=== PATIENT | female | born 1945 | race Caucasian/White ===

== ENCOUNTER 2019-07-18 07:59 | Outpatient (CLI) | payer MEDICARE, SELFPAY ==
--- NOTE | 2019-07-18 08:07 | MR_ITS ---
WS: [id number] MRI HEAD WITH CONTRAST TECHNIQUE: Sagittal T1, T2 axial, T2 axial FLAIR, axial susceptibility weighted imaging, axial diffus ion weighted images, and coronal T2 images were obtained. Pre and post-T1 axial and post T1 coronal i mages. ADC and FSPGR images. CLINICAL INFORMATION: DEMENTIA COMPARISON: None. FINDINGS: No evidence of restricted diffusion to suggest acute ischemia. Ventricular system and basal cisterns are patent. Mild small vessel changes. Moderate parenchymal volume loss. Volume loss worse in the par ietal lobes. Normal posterior fossa. Normal vascular flow voids at the skull base. Paranasal sinuses and mastoid air cells are well aerated. No hemosiderin on the susceptibility weighted images. No abnormal gadolinium enhancement. Normal optic chiasm and pituitary infundibulum. Normal dural veno us sinuses. Moderate symmetric atrophy involving the temporal lobes and hippocampal formations. MR/MR head wo/w con [id number] IMPRESSION: 1. No evidence of restricted diffusion to suggest acute ischemia. 2. Mild small vessel changes with moderate parenchymal volume loss worse in th e parietal lobes. 3. No hemosiderin on susceptibly weighted images. 4. No abnormal gadolinium enhancement. 5. Moderate symmetric atrophy involving the temporal lobes and hippocampal for mations.
== END 2019-07-18 08:00 | disposition home or self-care (01) ==
LOC: RADWPI 08:05
PROVIDERS: PCP Physician Assistant; Visit Provider Physician Assistant
DX: F03.90 Unspecified dementia, unspecified severity, without behavioral disturbance, psychotic disturbance, mood disturbance, and anxiety (principal)
CPT/HCPCS: 70553; A9579

== ENCOUNTER 2019-07-31 15:30 | Outpatient (RCR) | payer MEDICARE, SELFPAY | END 2019-08-02 23:59 | disposition home or self-care (01) | LOC: SOT 15:30 | PROVIDERS: PCP Physician Assistant; Referring Provider Psychiatry & Neurology Neurology; Visit Provider Psychiatry & Neurology Neurology | DX: R41.3 Other amnesia (principal); G31.84 Mild cognitive impairment of uncertain or unknown etiology; R90.89 Other abnormal findings on diagnostic imaging of central nervous system | CPT/HCPCS: 97165 ==

== ENCOUNTER 2019-08-03 06:00 | Outpatient (RCR) | payer MEDICARE, SELFPAY | END 2019-09-02 23:59 | disposition home or self-care (01) | LOC: SOT 06:00 | PROVIDERS: PCP Physician Assistant; Referring Provider Psychiatry & Neurology Neurology; Visit Provider Psychiatry & Neurology Neurology | DX: R41.3 Other amnesia (principal); R90.89 Other abnormal findings on diagnostic imaging of central nervous system; G31.84 Mild cognitive impairment of uncertain or unknown etiology | CPT/HCPCS: 97112; 97530 ==

== ENCOUNTER 2020-06-24 09:59 | Outpatient (CLI) | payer MEDICARE, SELFPAY ==
--- NOTE | 2020-06-24 10:02 | MM_ITS ---
WS: [id number] Exam: [place] [id number] Date/Time of Exam: 06/24/2020 10:09 AM Reason For Exam: SCREENING VIEWS: MLO and CC views both breasts. Comparison made with prior exam of 12/17/2015, 04/07/2012 and 03/17/2010 . Findings: There was no sign of mass, architectural distortion or suspicious calcification in either breast. Fa tty MM/[place] [id number] Impression: BI-RADS: 2-Benign FOLLOW-UP: 1 Year Follow-up This mammogram was also analyzed by the Computer Aided Detection System R2 Imag e Commercial Service Technician.
== END 2020-06-24 10:00 | disposition home or self-care (01) ==
LOC: RADSHAW 10:00
PROVIDERS: PCP Physician Assistant; Visit Provider Physician Assistant
DX: Z12.31 Encounter for screening mammogram for malignant neoplasm of breast (principal)
CPT/HCPCS: 77067

== ENCOUNTER → 2021-09-16 15:43 | Outpatient (BNVA) | payer MEDICARE, SELFPAY | PROVIDERS: Visit Provider Family Medicine | DX: Z76.89 Persons encountering health services in other specified circumstances (principal); J30.9 Allergic rhinitis, unspecified; R41.3 Other amnesia; I10 Essential (primary) hypertension; K30 Functional dyspepsia; E78.2 Mixed hyperlipidemia; F41.1 Generalized anxiety disorder | CPT/HCPCS: 80053; 80061; 84439; 84443; 85025 ==

== ENCOUNTER → 2022-04-07 09:07 | Outpatient (BNVA) | payer MEDICARE, SELFPAY | PROVIDERS: PCP Family Medicine; Visit Provider Family Medicine | DX: E78.2 Mixed hyperlipidemia (principal); I10 Essential (primary) hypertension; F41.1 Generalized anxiety disorder; R41.3 Other amnesia | CPT/HCPCS: 80053; 80061; 84443; 85025 ==

== ENCOUNTER → 2023-01-10 11:43 | Outpatient (BNVA) | payer MEDICARE, SELFPAY | PROVIDERS: PCP Family Medicine; Visit Provider Family Medicine | DX: K21.9 Gastro-esophageal reflux disease without esophagitis (principal); F41.1 Generalized anxiety disorder; I10 Essential (primary) hypertension; R79.89 Other specified abnormal findings of blood chemistry; R41.3 Other amnesia | CPT/HCPCS: 80048; 84439; 84443 ==

== ENCOUNTER → 2023-04-12 13:31 | Outpatient (BNVA) | payer MEDICARE, SELFPAY | PROVIDERS: PCP Family Medicine; Referring Provider Family Medicine; Visit Provider Physician Assistant | DX: M25.562 Pain in left knee (principal); M17.12 Unilateral primary osteoarthritis, left knee | CPT/HCPCS: 20610; 73560; 73565; 99203; J3301 ==

== ENCOUNTER → 2023-07-07 11:07 | Outpatient (BNVA) | payer MEDICARE, SELFPAY | PROVIDERS: PCP Family Medicine; Visit Provider Physician Assistant | DX: M17.12 Unilateral primary osteoarthritis, left knee | CPT/HCPCS: 99213 ==

== ENCOUNTER → 2023-08-16 15:21 | Outpatient (BNVA) | payer MEDICARE, SELFPAY | PROVIDERS: PCP Family Medicine; Visit Provider Physician Assistant | DX: M17.12 Unilateral primary osteoarthritis, left knee (principal); M25.562 Pain in left knee | CPT/HCPCS: 20610; 99213; J7318 ==

== ENCOUNTER → 2023-08-23 12:54 | Outpatient (BNVA) | payer MEDICARE, SELFPAY | PROVIDERS: PCP Family Medicine; Visit Provider Nurse Practitioner Family | DX: D22.22 Melanocytic nevi of left ear and external auricular canal (principal); D22.9 Melanocytic nevi, unspecified; L81.4 Other melanin hyperpigmentation; L82.1 Other seborrheic keratosis; L81.7 Pigmented purpuric dermatosis | CPT/HCPCS: 11200; 99203 ==

== ENCOUNTER → 2024-03-19 14:45 | Outpatient (BNVA) | payer MEDICARE, SELFPAY | PROVIDERS: PCP Family Medicine; Visit Provider Family Medicine | DX: I10 Essential (primary) hypertension (principal); K21.9 Gastro-esophageal reflux disease without esophagitis; E78.2 Mixed hyperlipidemia; R41.3 Other amnesia; E83.42 Hypomagnesemia; E55.9 Vitamin D deficiency, unspecified; R79.89 Other specified abnormal findings of blood chemistry | CPT/HCPCS: 80053; 80061; 82306; 82607; 83735; 84439; 84443; 84550; 85025; 86140 ==

== ENCOUNTER 2024-03-29 21:54 | Emergency (ER) | payer MEDICARE, SELFPAY ==
[2024-03-29 21:58] VITALS: BP 177/78; PULSE 82; RESP 20; TEMP 36.6; O2SAT 95; BMI 34.1
[2024-03-29 22:03] VITALS: BP 177/78; PULSE 82; O2SAT 95
--- NOTE | 2024-03-29 22:09 | XRR_ITS ---
PROCEDURE INFORMATION: Exam: XR Left Elbow Exam date and time: 03/29/2024 10:19 PM Age: 79 years old Clinical indication: Injury or trauma; Fall; Blunt trauma (contusions or hematomas); Elbow; Left; Additional info: Fall/elbow pain TECHNIQUE: Imaging protocol: Radiologic exam of the left elbow. Views: 3 or more views. COMPARISON: CR (UP EXM, ) 03/29/2024 10:19 PM FINDINGS: Bones/joints: Comminuted displaced fracture involving the olecranon process. No dislocation. Joint effusion. Soft tissues: Soft tissue swelling. XR/XR elbow LT min 3V* [id number] IMPRESSION: Acute fracture as above.
--- NOTE | 2024-03-29 22:09 | CTR_ITS ---
PROCEDURE INFORMATION: Exam: CT Cervical Spine Without Contrast Exam date and time: 03/29/2024 10:39 PM Age: 79 years old Clinical indication: Injury or trauma; Fall; Blunt trauma; Additional info: Fall/hit head TECHNIQUE: Imaging protocol: Computed tomography of the cervical spine without contrast. Radiation optimization: All CT scans at this facility use at least one of these dose optimization techniques: automated exposure control; mA and/or kV adjustment per patient size (includes targeted exams where dose is matched to clinical indication); or iterative reconstruction. COMPARISON: CT head wo con* [id number] 03/29/2024 10:35 PM RADIATION DOSE METRICS: Total DLP (mGy-cm): 203.31 FINDINGS: Bones: No acute fracture. No traumatic listhesis. Presumed chronic mild multilevel anterolisthesis, including at C3 on C4, C5 on C6 and C7 on T1. Multilevel degenerative changes. No severe spinal canal narrowing. Lungs: Lung apices are normal. Soft tissues: Unremarkable. CT/CT cervical spin wo con* [id number] IMPRESSION: No acute cervical spine findings.
--- NOTE | 2024-03-29 22:09 | CTR_ITS ---
PROCEDURE INFORMATION: Exam: CT Head Without Contrast Exam date and time: 03/29/2024 10:35 PM Age: 79 years old Clinical indication: Injury or trauma; Fall; Blunt trauma (contusions or hematomas); Consciousness not specified; Additional info: Fall/hit head/face TECHNIQUE: Imaging protocol: Computed tomography of the head without contrast. Radiation optimization: All CT scans at this facility use at least one of these dose optimization techniques: automated exposure control; mA and/or kV adjustment per patient size (includes targeted exams where dose is matched to clinical indication); or iterative reconstruction. COMPARISON: MR head wo/w con [id number] 07/18/2019 8:11 AM RADIATION DOSE METRICS: Total DLP (mGy-cm): 1042.63 FINDINGS: Brain: No acute intracranial hemorrhage, mass effect or midline shift. White matter hypodensities most likely from chronic microangiopathy. Cerebral ventricles: Ex vacuo expansion of the ventricles due to volume loss. Paranasal sinuses: Visualized sinuses are unremarkable. No fluid levels. Mastoid air cells: Visualized mastoid air cells are well aerated. Bones: No acute bony findings. Soft tissues: Left frontal scalp hematoma. CT/CT head wo con* [id number] IMPRESSION: No acute intracranial findings.
--- NOTE | 2024-03-29 22:09 | XRR_ITS ---
PROCEDURE INFORMATION: Exam: XR Left Humerus Exam date and time: 03/29/2024 10:19 PM Age: 79 years old Clinical indication: Injury or trauma; Fall; Blunt trauma (contusions or hematomas); Elbow; Left; Additional info: Fall/pain TECHNIQUE: Imaging protocol: Radiologic exam of the left humerus. Views: 2 or more views. COMPARISON: CR (UP EXM, ) 03/29/2024 10:19 PM FINDINGS: Bones/joints: No acute humerus fracture. No dislocation. Olecranon process fracture, detailed on concurrent elbow radiographic exam. Soft tissues: Elbow soft tissue swelling. XR/[place] [id number] IMPRESSION: No acute humerus fracture.
[2024-03-29 22:20] LABS: Basophils # 0.1 10^3/uL (0.0-0.1); Eosinophils # 0.1 10^3/uL (0.0-0.8); Eosinophils % 2.1 %; Lymphocytes # 2.1 10^3/uL (0.8-4.8); Lymphocytes % 40.4 %; Mean Corpuscular HGB Conc 33.5 g/dL (30-55); Mean Corpuscular Hemoglobin 33.1 pg (27-33); Mean Corpuscular Volume 98.8 fl (85-98); Mean Platelet Volume 12.1 fL (7.4-10.4); Monocytes # 0.5 10^3/uL (0.2-0.9); Monocytes % 9.9 %; Neutrophils # 2.38 10^3/uL (1.8-7.7); Neutrophils % 46.4 %; Nucleated Red Blood Cells % 0 %; Platelet Count 127 10^3/cmm (157-399); Red Blood Count 4.05 10^6/uL (3.85-5.65); Red Cell Distribution Width 12.3 % (12.1-15.1); White Blood Count 5.13 10^3/uL (3.29-11.43)
--- NOTE | 2024-03-29 22:34 | ED_ITS ---
Documented by User: FLORIN Ortez 03/30/24 16:05 HPI - Fall 2 General: Chief Complaint: Fall Stated Complaint: Fall Time Seen by Provider: 03/29/24 22:02 Source: patient Mode of arrival: EMS Limitations: no limitations History of Present Illness: Patient is an 79-year-old female who presents the emergency department after a fall that occurred prior to arrival. Patient states she missed a step while walking on stairs, fell sideways onto her left side. Reporting severe pain to her left elbow, and has large injuries to her face including skin tear to left cheek and abrasions to forehead. She is not reporting any lower extremity pain, specifically no hip pain. She states she was on the ground until EMS got there which was about 20 minutes, they had to help her up. States her pain is in control at this time, primarily is to her left elbow. She is not on a blood thinner. Denies hitting the back of her head or losing consciousness. No vomiting or focal neurological deficits. No other symptoms reported at this time. She has no previous fracture or dislocation history of her left elbow. MD complaint: fall Onset (ago): minute(s) Related Data Previous Rx's Medication Instructions Recorded pantoprazole 40 mg tablet,delayed 40 mg PO DAILY #90 tabs 03/19/24 release hydrocodone 5 mg-acetaminophen 325 1 tab PO Q8H PRN pain #14 tabs 03/30/24 mg tablet Allergies Allergy/AdvReac Type Severity Reaction Status Date / Time No Known Allergies Allergy Verified 03/30/24 13:49 [facility] ED 2 PFSH: Medical History Hypertension Family History Other Cancer Hypertension Denies family history of Diabetes CAD (coronary artery disease) Social History Smoking and tobacco/nicotine status: never used tobacco/nicotine Alcohol intake: current Alcohol intake frequency: holidays/special occasions only Substance/Drug Use: never Physical Exam 2 Const: COMMON NORMALS: no acute distress, patient oriented x3, healthy appearing and alert GENERAL APPEARANCE: cooperative O RIENTATION/CONSCIOUSNESS: Yes awake HENMT: OTHER: Large superficial skin tear to patient's left cheek with no active bleeding or signs of contamination. 2 superficial abrasions to her left forehead. None of these wounds are actively bleeding. No Roberto sign or raccoon eyes. No palpable skull fracture. No other signs of head or neck trauma. Eye: COMMON NORMALS: Equal, round and reactive pupils present, EOMs intact bilaterally and conjunctivae normal CONJUNCTIVA: Yes conjunctivae normal P UPIL: Yes Equal, round and reactive pupils present Neck/C-Spine: COMMON NORMALS: full ROM, supple and no meningeal signs Chest: COMMONS NORMALS: normal inspection of the chest and normal palpation of entire chest wall Resp: COMMON NORMALS: normal respiratory effort, No retractions, No use of accessory muscles and clear to auscultation bilaterally AUSCULTATION: clear to auscultation bilaterally Cardio: COMMON NORMALS: regular rate, regular rhythm, S1 normal heart sound present, S2 normal heart sound present, No gallops present (Cardio), No murmurs present (Cardio) and No rub (Cardio) RATE: regular rate RHYTHM: regular rhythm HEART SOUNDS: S1 normal heart sound present and S2 normal heart sound present GI: COMMON NORMALS: Soft to palpation and non-tender PALPATION: Yes Soft to palpation Back/Pelvis: COMMON NORMALS: no thoracic nor lumbar tenderness and thoraco- lumbar ROM normal Extremity: NARRATIVE EXTREMITY EXAM: Swelling to left elbow, significant reproducible tenderness to palpation. She cannot extend the left arm at the elbow. No skin tenting or open wounds. Distal radial pulse intact. Distal sensations intact. Both hips are palpated and negative tenderness to palpation. Negative logroll's. No shortening or internal/external rotation. Good flexion and extension at the hips. Distal sensations intact to her bilateral lower extremities. All other joints palpated and nontender. Neuro: COMMON NORMALS: patient oriented x3, CN's II-XII intact bilaterally, moves all extremities, no focal motor deficits and no sensory deficits noted SENSORIUM/ORIENTATION: Yes alert MENINGEAL SIGNS: Yes no meningeal signs M OTOR EXAM: Pronator motor function not present, no tremor noted and no asterixis Course 2 Vital Signs: Vital signs: Vital Signs Temperature 98 F 03/29/24 21:58 Pulse Rate 87 03/30/24 05:04 Respiratory Rate 20 H 03/29/24 23:11 Blood Pressure 169/80 03/30/24 00:00 Pulse Oximetry 93 03/30/24 05:04 Oxygen Delivery Me thod Room Air 03/30/24 04:00 MDM - Fall Medical Decision Making I initially saw the patient for a fall, she fell onto her left side did not hit head or lose consciousness. Large amount of swelling to left elbow, no skin tenting or open wounds. There was displaced fracture to left proximal ulna. XRs were reviewed with Dr. Jc who recommended splint and prompt follow up. Patient's pre and post splint neurovascular status intact. She had scattered abrasions that were tended to, none requiring any procedural repair as they were all too superficial. Patient did not complain to me of any lower extremity pain on initial exam and I did not appreciate any acute findings, however family reported that after fall she initially reported diffuse left lower extremity pain, XR of left hip neg but XR of knee saw potential tibial plateau fx and recommended CT. CT is pending upon handoff to Dr. Desouza. Patient's care transferred over myself at shift change, FERTILIZER APPLICATOR was in discussion with Dr. Jc about patient's condition. Only thing pending we will get the care transferred over to myself was in the CT. Did not show any acute fracture. Patient is in a splint for her left arm currently. She has a prescription for [place] for pain medicine. We will discharge her and have her call Ortho's office first thing in the morning to arrange follow-up. Lab Data 03/29/24 22:14 03/29/24 22:14 Radiology Impressions Cervical Spine CT 03/29/24 22:09 IMPRESSION: No acute cervical spine findings. Elbow X-Ray 03/29/24 22:09 IMPRESSION: Acute fracture as above. Head CT 03/29/24 22:09 IMPRESSION: No acute intracranial findings. Humerus X-Ray 03/29/24 22:09 IMPRESSION: No acute humerus fracture. Hip/Pelvis X-Ray 03/29/24 22:38 IMPRESSION: No acute bony findings. Knee X-Ray 03/29/24 22:38 IMPRESSION: Suspect acute impacted fracture at the lateral tibial plateau with a mildly depressed component. Recommend confirmation with CT. Knee CT 03/30/24 00:56 IMPRESSION: 1. Focal osteopenia of the anterolateral tibial plateau with multiple regions of cortical irregularity, however no definitive fracture lucency transgressing. This may represent bone contusion, however in the setting of osteopenia fractures can remain occult. MRI can be obtained for further assessment. 2. Moderate articular effusion with multiple intra-articular bodies. 3. Moderate osteoarthritis. Laboratory Results WBC 5.13 10^3/uL (3.29-11.43) 03/29/24 22:14 RBC 4.05 10^6/uL (3.85-5.65) 03/29/24 22:14 Hgb 13.40 g/dL (11.27-16.99) 03/29/24 22:14 Hct 40.0 % (36-47) 03/29/24 22:14 MCV 98.8 fl (85-98) H 03/29/24 22:14 MCH 33.1 pg (27-33) H 03/29/24 22:14 MCHC 33.5 g/dL (30-55) 03/29/24 22:14 RDW 12.3 % (12.1-15.1) 03/29/24 22:14 Plt Count 127 10^3/cmm (157-399) L 03/29/24 22:14 MPV 12.1 fL (7.4-10.4) H 03/29/24 22:14 Neut % (Auto) 46.4 % 03/29/24 22:14 Lymph % (Auto) 40.4 % 03/29/24 22:14 [place] % (Auto) 9.9 % 03/29/24 22:14 Eos % (Auto) 2.1 % 03/29/24 22:14 Baso % (Auto) 1.0 % 03/29/24 22:14 Neut # (Auto) 2.38 10^3/uL (1.8-7.7) 03/29/24 22:14 Lymph # (Auto) 2.1 10^3/uL (0.8-4.8) 03/29/24 22:14 [place] # (Auto) 0.5 10^3/uL (0.2-0.9) 03/29/24 22:14 Eos # (Auto) 0.1 10^3/uL (0.0-0.8) 03/29/24 22:14 Baso # (Auto) 0.1 10^3/uL (0.0-0.1) 03/29/24 22:14 Nucleated RBC % (auto) 0 % 03/29/24 22:14 Nucleated RBCs # 0.0 /100WBC 03/29/24 22:14 Sodium 139 mmol/L (136-145) 03/29/24 22:14 Potassium 4.0 mmol/L (3.5-5.1) 03/29/24 22:14 Chloride 103 mmol/L (98-107) 03/29/24 22:14 Carbon Dioxide 26 mmol/L (22-29) 03/29/24 22:14 Anion Gap 14.0 (5-19) 03/29/24 22:14 BUN 15 mg/dL (8-23) 03/29/24 22:14 Creatinine 0.8 mg/dL (0.5-0.9) 03/29/24 22:14 GFR Calculation Not Reportable 03/29/24 22:14 Glucose 149 mg/dL (65-115) H 03/29/24 22:14 Calculated Osmolality 292 mOsm/kg (285-295) 03/29/24 22:14 Calcium 9.0 mg/dL (8.5-10.5) 03/29/24 22:14 Total Bilirubin 0.2 mg/dL (0.15-1.2) 03/29/24 22:14 AST 26 U/L (0-32) 03/29/24 22:14 ALT 21 U/L (0-33) 03/29/24 22:14 Alkaline Phosphatase 82 U/L (35-105) 03/29/24 22:14 Total Protein 6.5 g/dL (6.6-8.7) L 03/29/24 22:14 Albumin 4.1 g/dL (3.5-5.2) 03/29/24 22:14 Globulin 2.4 g/dL (1.3-4.6) 03/29/24 22:14 All radiology interpretation(s) finalized by discharge Discharge Plan Discharge Patient Disposition: Home Clinical Impression: Fracture of proximal end of left ulna Qualifiers: Encounter type: initial encounter Fracture type: closed Fracture morphology: u nspecified fracture morphology Qualified Code(s): S52.002A - Unspecified fracture of upper end of left ulna, initial encounter for closed fracture Condition: Stable Prescriptions: New hydrocodone-acetaminophen 5-325 mg tablet 1 tab PO Q8H PRN (Reason: pain) Qty: 14 0RF No Action pantoprazole 40 mg tablet,delayed release (DR/EC) 40 mg PO DAILY Qty: 90 2RF Discharge Orders: Discharge ED (Routine); Ordered 03/30/24 Ordered By: Marvin Desouza Referrals: Jacobo Mancilla DO [Primary Care Provider] - 1 week Patient Instructions: Elbow Fracture (ED) Activity Restrictions/Additional Instructions: Close follow-up with orthopedics as we discussed. Take pain medications as prescribed. You may alternate this with ibuprofen. Wound care as discussed, replacing dry nonadhesive bandages every 6-8 hours. Make sure these are healing appropriately, follow-up closely with primary care as well. Please return with any new or worsening. Coding Level of Care Code ED Front End Architect for Chg Fwd Documented by User: Marvin Desouza DO 03/30/24 04:52 HPI - Fall 2 General: Chief Complaint: Fall Stated Complaint: Fall Time Seen by Provider: 03/29/24 22:02 Related Data Previous Rx's Medication Instructions Recorded pantoprazole 40 mg tablet,delayed 40 mg PO DAILY #90 tabs 03/19/24 release hydrocodone 5 mg-acetaminophen 325 1 tab PO Q8H PRN pain #14 tabs 03/30/24 mg tablet Allergies Allergy/AdvReac Type Severity Reaction Status Date / Time No Known Allergies Allergy Verified 03/30/24 13:49 PFSH ED 2 PFSH: Medical History Hypertension Family History Other Cancer Hypertension Denies family history of Diabetes CAD (coronary artery disease) Social History Smoking and tobacco/nicotine status: never used tobacco/nicotine Alcohol intake: current Alcohol intake frequency: holidays/special occasions only Substance/Drug Use: never Course 2 Vital Signs: Vital signs: Vital Signs Temperature 98 F 03/29/24 21:58 Pulse Rate 87 03/30/24 05:04 Respiratory Rate 20 H 03/29/24 23:11 Blood Pressure 169/80 03/30/24 00:00 Pulse Oximetry 93 03/30/24 05:04 Oxygen Delivery Me thod Room Air 03/30/24 04:00 MDM - Fall Medical Decision Making Patient's care transferred over myself at shift change, FERTILIZER APPLICATOR was in discussion with Dr. Jc about patient's condition. Only thing pending we will get the care transferred over to myself was in the CT. Did not show any acute fracture. Patient is in a splint for her left arm currently. She has a prescription for [place] for pain medicine. We will discharge her and have her call Ortho's office first thing in the morning to arrange follow-up. Lab Data 03/29/24 22:14 03/29/24 22:14 Radiology Impressions Cervical Spine CT 03/29/24 22:09 IMPRESSION: No acute cervical spine findings. Elbow X-Ray 03/29/24 22:09 IMPRESSION: Acute fracture as above. Head CT 03/29/24 22:09 IMPRESSION: No acute intracranial findings. Humerus X-Ray 03/29/24 22:09 IMPRESSION: No acute humerus fracture. Hip/Pelvis X-Ray 03/29/24 22:38 IMPRESSION: No acute bony findings. Knee X-Ray 03/29/24 22:38 IMPRESSION: Suspect acute impacted fracture at the lateral tibial plateau with a mildly depressed component. Recommend confirmation with CT. Knee CT 03/30/24 00:56 IMPRESSION: 1. Focal osteopenia of the anterolateral tibial plateau with multiple regions of cortical irregularity, however no definitive fracture lucency transgressing. This may represent bone contusion, however in the setting of osteopenia fractures can remain occult. MRI can be obtained for further assessment. 2. Moderate articular effusion with multiple intra-articular bodies. 3. Moderate osteoarthritis. Laboratory Results WBC 5.13 10^3/uL (3.29-11.43) 03/29/24 22:14 RBC 4.05 10^6/uL (3.85-5.65) 03/29/24 22:14 Hgb 13.40 g/dL (11.27-16.99) 03/29/24 22:14 Hct 40.0 % (36-47) 03/29/24 22:14 MCV 98.8 fl (85-98) H 03/29/24 22:14 MCH 33.1 pg (27-33) H 03/29/24 22:14 MCHC 33.5 g/dL (30-55) 03/29/24 22:14 RDW 12.3 % (12.1-15.1) 03/29/24 22:14 Plt Count 127 10^3/cmm (157-399) L 03/29/24 22:14 MPV 12.1 fL (7.4-10.4) H 03/29/24 22:14 Neut % (Auto) 46.4 % 03/29/24 22:14 Lymph % (Auto) 40.4 % 03/29/24 22:14 [place] % (Auto) 9.9 % 03/29/24 22:14 Eos % (Auto) 2.1 % 03/29/24 22:14 Baso % (Auto) 1.0 % 03/29/24 22:14 Neut # (Auto) 2.38 10^3/uL (1.8-7.7) 03/29/24 22:14 Lymph # (Auto) 2.1 10^3/uL (0.8-4.8) 03/29/24 22:14 [place] # (Auto) 0.5 10^3/uL (0.2-0.9) 03/29/24 22:14 Eos # (Auto) 0.1 10^3/uL (0.0-0.8) 03/29/24 22:14 Baso # (Auto) 0.1 10^3/uL (0.0-0.1) 03/29/24 22:14 Nucleated RBC % (auto) 0 % 03/29/24 22:14 Nucleated RBCs # 0.0 /100WBC 03/29/24 22:14 Sodium 139 mmol/L (136-145) 03/29/24 22:14 Potassium 4.0 mmol/L (3.5-5.1) 03/29/24 22:14 Chloride 103 mmol/L (98-107) 03/29/24 22:14 Carbon Dioxide 26 mmol/L (22-29) 03/29/24 22:14 Anion Gap 14.0 (5-19) 03/29/24 22:14 BUN 15 mg/dL (8-23) 03/29/24 22:14 Creatinine 0.8 mg/dL (0.5-0.9) 03/29/24 22:14 GFR Calculation Not Reportable 03/29/24 22:14 Glucose 149 mg/dL (65-115) H 03/29/24 22:14 Calculated Osmolality 292 mOsm/kg (285-295) 03/29/24 22:14 Calcium 9.0 mg/dL (8.5-10.5) 03/29/24 22:14 Total Bilirubin 0.2 mg/dL (0.15-1.2) 03/29/24 22:14 AST 26 U/L (0-32) 03/29/24 22:14 ALT 21 U/L (0-33) 03/29/24 22:14 Alkaline Phosphatase 82 U/L (35-105) 03/29/24 22:14 Total Protein 6.5 g/dL (6.6-8.7) L 03/29/24 22:14 Albumin 4.1 g/dL (3.5-5.2) 03/29/24 22:14 Globulin 2.4 g/dL (1.3-4.6) 03/29/24 22:14 Discharge Plan Discharge Patient Disposition: Home Clinical Impression: Fracture of proximal end of left ulna Qualifiers: Encounter type: initial encounter Fracture type: closed Fracture morphology: u nspecified fracture morphology Qualified Code(s): S52.002A - Unspecified fracture of upper end of left ulna, initial encounter for closed fracture Condition: Stable Prescriptions: New hydrocodone-acetaminophen 5-325 mg tablet 1 tab PO Q8H PRN (Reason: pain) Qty: 14 0RF No Action pantoprazole 40 mg tablet,delayed release (DR/EC) 40 mg PO DAILY Qty: 90 2RF Discharge Orders: Discharge ED (Routine); Ordered 03/30/24 Ordered By: Marvin Desouza Referrals: Jacobo Mancilla DO [Primary Care Provider] - 1 week Patient Instructions: Elbow Fracture (ED) Activity Restrictions/Additional Instructions: Close follow-up with orthopedics as we discussed. Take pain medications as prescribed. You may alternate this with ibuprofen. Wound care as discussed, replacing dry nonadhesive bandages every 6-8 hours. Make sure these are healing appropriately, follow-up closely with primary care as well. Please return with any new or worsening. Coding Level of Care Code ED Front End Architect for Darrius Felder
--- NOTE | 2024-03-29 22:38 | XRR_ITS ---
PROCEDURE INFORMATION: Exam: XR Left Hip Exam date and time: 03/29/2024 10:43 PM Age: 79 years old Clinical indication: Injury or trauma; Fall; Blunt trauma (contusions or hematomas); Left; Hip and pelvic region; Additional info: Fall/pain TECHNIQUE: Imaging protocol: Radiologic exam of the left hip. Views: 2 or 3 views hip with pelvis when performed. COMPARISON: No relevant prior studies available. FINDINGS: Bones/joints: No acute fracture or dislocation. Moderate left hip DJD. Soft tissues: Unremarkable. XR/XR hip LT 2-3V wo/w pel* [id number] IMPRESSION: No acute bony findings.
--- NOTE | 2024-03-29 22:38 | XRR_ITS ---
PROCEDURE INFORMATION: Exam: XR Left Knee Exam date and time: 03/29/2024 10:43 PM Age: 79 years old Clinical indication: Injury or trauma; Fall; Blunt trauma; Knee; Left; Additional info: Fall/pain TECHNIQUE: Imaging protocol: Radiologic exam of the left knee. Views: 3 views. COMPARISON: CR XR knees AP WB w BI lmt ORTH 04/12/2023 1:43 PM FINDINGS: Bones/joints: Irregularity at the lateral tibial plateau. No dislocation. Joint effusion. Soft tissues: Soft tissue swelling. XR/XR knee LT 3V* [id number] IMPRESSION: Suspect acute impacted fracture at the lateral tibial plateau with a mildly depressed component. Recommend confirmation with CT.
[2024-03-29 22:41] LABS: Alanine Aminotransferase 21 U/L (0-33); Albumin Level 4.1 g/dL (3.5-5.2); Alkaline Phosphatase 82 U/L (35-105); Aspartate Amino Transferase 26 U/L (0-32); Blood Urea Nitrogen 15 mg/dL (8-23); Carbon Dioxide 26 mmol/L (22-29); Chloride 103 mmol/L (98-107); Creatinine Clr Calc Pharmacy 67.7461; Globulin 2.4 g/dL (1.3-4.6); Glucose 149 mg/dL (65-115); Osmolality Calculated 292 mOsm/kg (285-295); Sodium 139 mmol/L (136-145); Total Bilirubin 0.2 mg/dL (0.15-1.2); Total Protein 6.5 g/dL (6.6-8.7)
[2024-03-29 23:03] VITALS: BP 168/76; PULSE 87; O2SAT 95
[2024-03-29 23:11] VITALS: RESP 20
[2024-03-29] MEDS: HYDROmorphone 1 mg/mL INJ 1 mL IVP (23:11)
[2024-03-29 23:30] VITALS: BP 153/63; PULSE 86; O2SAT 91
[2024-03-30] VITALS (9 sets, daily range): BP systolic 169; BP diastolic 80; PULSE 73–91; O2SAT 78–94
--- NOTE | 2024-03-30 00:56 | CTR_ITS ---
PROCEDURE INFORMATION: Exam: CT Left Lower Extremity, Knee Exam date and time: 03/30/2024 1:10 AM Age: 79 years old Clinical indication: Injury or trauma; Fall; Blunt trauma; Knee; Left; Additional info: Questionable tibial plateau fracture on XR TECHNIQUE: Imaging protocol: CT of the left lower extremity without contrast was performed. Exam focused on the knee. Radiation optimization: All CT scans at this facility use at least one of these dose optimization techniques: automated exposure control; mA and/or kV adjustment per patient size (includes targeted exams where dose is matched to clinical indication); or iterative reconstruction. COMPARISON: CR (LOW EXM, ) 03/29/2024 10:43 PM RADIATION DOSE METRICS: Total DLP (mGy-cm): 352.04 FINDINGS: Bones/joints: Anterolateral tibial plateau focal osteopenia with several regions of cortical irregularity without definitive fracture lucency on this examination. Moderate-sized effusion. Diffuse osteopenia. Soft tissues: Normal. Vasculature: Peripheral arterial vascular disease. CT/CT knee LT wo con* [id number] IMPRESSION: 1. Focal osteopenia of the anterolateral tibial plateau with multiple regions of cortical irregularity, however no definitive fracture lucency transgressing. This may represent bone contusion, however in the setting of osteopenia fractures can remain occult. MRI can be obtained for further assessment. 2. Moderate articular effusion with multiple intra-articular bodies. 3. Moderate osteoarthritis.
[2024-03-30] MEDS: ondansetron 4 MG Tablet PO ×2 (01:53→03:04)
--- NOTE | 2024-03-30 05:13 | DCPLANNER ---
Message sent to ortho for follow up- Fx of left ulna
== END 2024-03-30 05:06 | disposition home or self-care (01) ==
PROVIDERS: Emergency Provider Physician Assistant; PCP Family Medicine
DX: S52.002A Unspecified fracture of upper end of left ulna, initial encounter for closed fracture (principal); I10 Essential (primary) hypertension; W19.XXXA Unspecified fall, initial encounter; S52.032A Displaced fracture of olecranon process with intraarticular extension of left ulna, initial encounter for closed fracture; S52.045A Nondisplaced fracture of coronoid process of left ulna, initial encounter for closed fracture; S42.442A Displaced fracture (avulsion) of medial epicondyle of left humerus, initial encounter for closed fracture
CPT/HCPCS: 29105; 36415; 70450; 72125; 73060; 73080; 73502; 73562; 73700; 80053; 85025; 96374; 99285; J1171; Q0162

== ENCOUNTER → 2024-03-30 13:44 | Outpatient (BNVA) | payer MEDICARE, SELFPAY | PROVIDERS: PCP Family Medicine; Referring Provider Physician Assistant; Visit Provider Student in an Organized Health Care Education/Training Program | DX: S52.002A Unspecified fracture of upper end of left ulna, initial encounter for closed fracture (principal); M17.12 Unilateral primary osteoarthritis, left knee; W18.39XA Other fall on same level, initial encounter | CPT/HCPCS: 73080 ==

== ENCOUNTER 2024-03-30 15:37 | Outpatient (CLI) | payer MEDICARE, SELFPAY ==
--- NOTE | 2024-03-30 15:40 | CTR_ITS ---
PROCEDURE INFORMATION: Exam: CT Left Upper Extremity Without Contrast, Elbow Exam date and time: 03/30/2024 4:08 PM Age: 79 years old Clinical indication: Injury or trauma; Fall; Blunt trauma (contusions or hematomas); Elbow; Left; Injury date: 03/30/2024; Additional info: Fracture, no prior auth required ref# [id number] TECHNIQUE: Imaging protocol: Computed tomography of the left upper extremity without contrast. Exam focused on the elbow. Radiation optimization: All CT scans at this facility use at least one of these dose optimization techniques: automated exposure control; mA and/or kV adjustment per patient size (includes targeted exams where dose is matched to clinical indication); or iterative reconstruction. COMPARISON: CR XR elbow LT min 3V* [id number] 03/30/2024 1:45 PM RADIATION DOSE METRICS: Total DLP (mGy-cm): 101.58 FINDINGS: Bones/joints: Acute widely displaced intra-articular fracture of the proximal ulna with isolation of the olecranon process. Acute avulsion fracture of the coronoid process of the proximal ulna involving the sublime tubercle. There is a subcentimeter displaced avulsion fragment along the medial aspect of the distal humerus, which may reflect avulsion of the proximal attachment of the ulnar collateral ligament (for example, image 63 of series 5 and image 25 of series 12). Small joint effusion/hemarthrosis noted. Radiocapitellar alignment is maintained. Proximal radius is intact. Chronic bony spurring along the lateral humeral epicondyle compatible with chronic avulsive injury versus epicondylitis. Soft tissues: Soft tissue edema without evidence of fluid collection or hematoma. CT/CT elbow LT wo con* [id number] IMPRESSION: 1. Acute displaced proximal ulnar fracture. 2. Acute coronoid process fracture. 3. Subcentimeter avulsion fragment along the medial aspect of the distal humerus, possibly reflecting avulsion of the proximal attachment of the ulnar collateral ligament. Follow-up orthopedic evaluation and nonemergent MRI of the elbow is recommended.
== END 2024-03-30 15:38 | disposition home or self-care (01) ==
LOC: RAD 15:39
PROVIDERS: PCP Family Medicine; Visit Provider Student in an Organized Health Care Education/Training Program
DX: S52.032A Displaced fracture of olecranon process with intraarticular extension of left ulna, initial encounter for closed fracture (principal); S52.045A Nondisplaced fracture of coronoid process of left ulna, initial encounter for closed fracture; S42.442A Displaced fracture (avulsion) of medial epicondyle of left humerus, initial encounter for closed fracture; W19.XXXA Unspecified fall, initial encounter
CPT/HCPCS: 73200

== ENCOUNTER 2024-04-02 11:43 | Day surgery (SDC) | payer MEDICARE, SELFPAY ==
[2024-04-02] VITALS (12 sets, daily range): BP systolic 143–173; BP diastolic 60–91; PULSE 67–82; RESP 12–18; TEMP 36.1–36.7; O2SAT 90–95; BMI 31.9
--- NOTE | 2024-04-02 12:25 | W.PM.OPSUD ---
Surgery/Procedure H&P Update DATE OF PROCEDURE: April 02, 2024 DATE H&P PERFORMED: 03/30/24 H&P UPDATE INFORMATION: I have reviewed H&P completed within last 30 days, I have examined patient prior to procedure and No changes to prior documentation CHANGES TO PREVIOUS DOCUMENTATION: No changes since last office visit. We did get a CT scan again demonstrating the acute proximal ulna fracture consistent with olecranon fracture. There is a small avulsion of the coronoid process as well as appears to be small avulsion of medial epicondyle at this point in time we talked about treatment options at this point time I feel she best be benefited from a ORIF left olecranon I feel this will add to the stability of the elbow and in the process of recovery we will keep her in a hinged elbow brace for any type of sprains of the collateral ligaments. They understand and agree with current plan. All questions answered. PREOP DIAGNOSIS: Left olecranon fracture displaced PRIMARY INDICATION FOR PROCEDURE: Left olecranon fracture displaced PLANNED PROCEDURE: Operation Date: 04/02/24 14:20 Proposed Procedures p OLECRANON OPEN REDUCTION INTERNAL FIXATION(Left) - Marlo Jc DO
[2024-04-02] MEDS: acetaminophen 1,000 MG/100 ML PIGGYBACK 400 MG IV (12:57)
[2024-04-02] MEDS: ketorolac 30 mg/mL INJ IVP (13:07)
[2024-04-02] MEDS: sodium chloride 0.9% 1,000 ML 30 ML IV (13:15)
--- NOTE | 2024-04-02 13:31 | P.ANESASSM_ITS ---
Pre-Anesthetic Assessment Height/Weight: Height 1.7 m Weight 92.533 kg Temp Pulse Resp BP Pulse Ox O2 Del Method 98.0 F 70 16 143/60 94 Room Air 04/02/24 12:20 04/02/24 13:15 04/02/24 13:15 04/02/24 13:15 04/02/24 13:15 04/02/24 13:15 Preop Diagnosis: Left olecranon fracture displaced Operation Date: 04/02/24 14:20 Proposed Procedures p OLECRANON OPEN REDUCTION INTERNAL FIXATION(Left) - Marlo Dane, DO Familial anesthetic complications: None Was Beta Sally taken within 24 hours: N/A Was Clonidine taken within 24 hours: N/A Last intake: Intake Last Liquid Date 04/01/24 Last Liquid Time 23:55 Last Solid Date 04/01/24 Last Solid Time 19:30 Social No alcohol and No tobacco Exam alert, oriented x 3, clear to auscultation bilaterally and regular rate & rhythm Airway Mallampati: Class II Dentition: false Pulmonary allergies GI Gastroesophageal Reflux Disease Anesthetic Plan ASA status: 2 Anesthesia: General and Regional (specify below) Risk of > 500 ml blood loss (7ml/kg in children): No Medications/Allergies Home Medications Medication Instructions Recorded Confirmed Last Taken Type pantoprazole 40 mg tablet,delayed 40 mg PO DAILY #90 tabs 03/19/24 04/02/24 Unknown Rx release hydrocodone 5 mg-acetaminophen 325 1 tab PO Q8H PRN pain #14 tabs 03/30/24 04/02/24 Unknown Rx mg tablet Allergies Allergy/AdvReac Type Severity Reaction Status Date / Time No Known Allergies Allergy Verified 03/30/24 13:49 [facility] Anesthesia Medical History Hypertension Family History Other Cancer Hypertension Denies family history of Diabetes CAD (coronary artery disease) Social History Smoking and tobacco/nicotine status: never used tobacco/nicotine Alcohol intake: current Alcohol intake frequency: holidays/special occasions only Substance/Drug Use: never Data Anesthesia Cardiac Studies: No Data to Display
--- NOTE | 2024-04-02 13:32 | ANES.PROC ---
Anesthesia Procedures Procedure/Date: 04/02/24 Nerve Block ^: Nerve Block 1: Main Anesthesia: general anesthesia Time Out Performed: Yes Consent: requested by attending/covering physician, from patient, from other, risks and benefits reviewed and patient agrees to proceed Nerve block location: supraclavicular (L) Anesthesia monitors applied: pulse oximetry, EKG, BP cuff and oxygen Nerve block position: semi sitting Anesthetic Used: ropivicaine 0.5% (30 ml) and with decadron (4 mg) Ultrasound used to: recognize landmarks, visualize and ID brachial plexus and in supraclavicular region Nerve Stimulator Used?: No Interscalene/Femoral BLK: 4 stimuplex 21 g needle used for position and inplane approach, visualize local anesthetic spread and no vascular puncture identified Injection: neg aspiration of heme Patient Tolerated Procedure: well Complications: none
--- NOTE | 2024-04-02 13:37 | SUR.PREOP ---
13:25 SUPRACLAVICULAR NERVE BLOCK PERFORMED BY Dr BA, USING 30mL OF 5% ROPIVACAINE WITH 4mg OF DECADRONE. PT TOLERATED PROCEDURE WELL. PT ON VETERINARY TECHNOLOGIST SHOWING NSR.
[2024-04-02] MEDS: ceFAZolin 2,000 MG in sodium chloride 0.9% (plus) 50 ML 100 MG IV (14:01)
--- NOTE | 2024-04-02 16:12 | XR_ITS ---
WS: [id number] Left elbow, C-arm fluoroscopy views, 04/02/2024 Clinical Data: OR PICS Comparison: Left elbow, 03/30/2024 Findings: A posterior plate and screws were applied to the olecranon to reduce an olecranon fracture. XR/XR elbow LT 2V [id number] Impression: Internal fixation of left olecranon fracture.
--- NOTE | 2024-04-02 16:41 | P.BOP_ITS ---
Date of Procedure: 04/02/2024 Surgeon: Marlo Jc DO Office Service Coordinator(s): Arnoldo Jc PA-C Procedure(s) performed: Left elbow olecranon open reduction internal fixation Findings of the procedure(s): Patient found to have fracture of the left olecranon underwent ORIF as planned without issues or complications patient a long-arm posterior splint strict no range of motion and in a sling taken to PACU stable condition will follow-up in 2 weeks. Estimated blood loss: 25 mL Specimen(s) removed: None Post-operative diagnosis: Left olecranon fracture displaced
--- NOTE | 2024-04-02 16:44 | P.OP_ITS ---
Operative Report Date of procedure: April 02, 2024 Pre-op diagnosis: Displaced left olecranon fracture Post-op diagnosis: Same Procedure done: Left elbow olecranon open reduction internal fixation Implants: [place] left 4-hole olecranon plate combination of 3.5 mm locking and nonlocking screws [place] DBM plus paste with cancellous chips 1 cc Surgeon: Marlo Jc DO Geospatial Image Analyst: Arnoldo Jc PA-C: FLORIN was necessary for assistance in this case with arm positioning to execute the procedure, retraction and protection of neurovascular structures as well as to assist with ORIF reduction and fixation, wound closure and dressing / wound application. Anesthesia: General and Nerve Block Estimated blood loss: 25mL 68mins IV fluids: 900mL Complications: none Findings: see op note Condition: stable Disposition: same day Brief History: Patient is a pleasant 79-year-old female sustained a left elbow olecranon fracture significantly displaced with joint disruption. We talked about her treatment options in detail. Get a CT scan confirming a olecranon fracture as well as its displacement and some comminution. At this point time we talked about treatment options she is fairly active and given the displacement about this with patient as well as family they through shared decision making we will proceed with surgical intervention for left olecranon ORIF. They understand the ins and outs procedure risk benefits complication alternatives with surgery and through shared decision make elects proceed with surgical intervention. All questions at this time. Will proceed with the OR today. Consent obtained. Procedure: Patient was seen and evaluated in the preoperative holding area. Consent was reviewed and signed with patient correct extremities and subsequently marked. She has been seen evaluated by anesthesia underwent a nerve block. Once cleared for surgery she was taken back to the operative suite she was kept on and transported to an OR table underwent anesthesia per anesthesia part was prepped and anesthetized she was placed in a beanbag lateral decubitus position with the right arm down already prominences well-padded patient appropriate secured to the bed with appropriately ax roll. The splint was taken down to the left upper extremity patient had normal ecchymosis and swelling about this area however had normal wrinkle sign. At this point in time this lateral decubitus position plan was for a bump into the upper arm as well as then folding this over the bump to then perform the olecranon ORIF. I did bring in fluoroscopic imaging to confirm satisfactory position prior to we had a nonsterile tourniquet applied to the left upper arm. At this point in time the left upper extremity then was prepped and draped in send orthopedic fashion. Final timeout performed. Patient received appropriate preoperative antibiotics. Esmarch tourniquet was used exsanguinate the left upper extremity and tourniquet was insufflated to 250 mmHg. At this point in time I utilized a standard curvilinear incision curving this laterally around the olecranon to avoid direct stressing cut over the high tension area. Sharp scalpel incision was made through skin and subcutaneous tissue and then subsequently mobilized full-thickness skin flaps came down directly over the fracture site. I came directly onto the bone of the proximal ulna peeled off the periosteum and identified the fracture. Fracture hematoma was evacuated there is significant displacement of the proximal fragment due to the displacing forces of the tricep. At this point in time I pulled this piece back and then subsequently thoroughly irrigated the joint and took this through range of motion no loose bodies or fragments were appreciated or pulled out from the joint. At this point in time I then subsequently elevated periosteum off of the fracture to identify a appropriate read as well as did a split at the distal aspect of the tricep tendon insertion to accommodate for the plate I peeled this back in a standard T fashion I then subsequently ran to limbs of [employer] wire. Plan was to incorporate this into my plate and tied this over topped for increasing construct strength. At this point in time I then subsequently had satisfactory read on my cortical bone there was some slight comminution on the medial and lateral sides of this fracture fragment I utilized a [id number] tenaculum clamp to achieve satisfactory reduction at confirm this with fluoroscopic imaging once I satisfied with this I selected appropriate size plate which was a [place] left olecranon 4-hole plate. I then first secured the plate to bone proximally and then an eccentric fashion drilled the aid and some compression across the fracture site once I had these 2 points of fixation I then subsequently took images to confirm I was in satisfactory placement as well as had appropriate bone to plate interface once a satisfied with this I then drilled a homerun screw from proximal to distal which was subsequent drilled measured and placed appropriate length screws once I satisfied with this I then subsequently locked around the construct to and strengthen the constructs rigidity. At this point in time I then brought in fluoroscopic imaging had satisfactory ORIF of the left elbow olecranon with a congruent joint and took this through range of motion with no clicking or any signs of impingement or blocking took this through prone pronation supination as well. I then brought in fluoroscopic imaging to confirm satisfactory ORIF of the olecranon with stable fixation and all screws were outside of the joint and there was a concentric ulnohumeral joint and was taken through live fluoroscopy imaging confirming this. At this point in time I then thoroughly irrigated out the wound bed tourniquet deflated hemostasis was satisfactory I then subsequently utilized a free suture needle to pass my free ends of the tiger wire suture through the holes of the [place] plate which subsequently was then tied to increase my construct strength. I then utilized 0 Vicryl suture to reinforce the tricep tendon in this area. Next I then utilized 1 cc of [place] DBM putty paste which was to fill in the small area comminution this was only roughly 1 cc needed and given patient's age as well as to augment her healing I utilized this. Next I then subsequently closed in interrupted fashion with 0 Vicryl 2-0 Vicryl and then utilized david for the skin. Xeroform was placed over the incision site. Bulky padded with 4 x 4's ABDs Curlex soft roll and a long posterior arm splint then was wrapped in Missael wrap. Patient was then awakened from anesthesia taken PACU in stable condition. Disposition: Patient taken to the PACU in stable condition recovering well will leave splint on in place until follow-up patient follow-up in 2 weeks strict no range of motion and strict no weightbearing to the left upper extremity will receive appropriate discharge directions and medication follow-up in 2 weeks. All questions answered.
--- NOTE | 2024-04-02 16:45 | PM.PACU ---
PACU note Narrative: Patient is an 79-year-old female who just underwent a left elbow ORIF. Patient transferred to PACU in stable condition. Pain is well controlled. shoulder Dressing on , dry and in place. Patient's operative arm is in a shoulder immobilizer. Patient is somnolent but arousable. Patient's fingers are warm with good perfusion. Normal cap refill under 2 seconds. Patient able to wiggle fingers. Unable to assess further range of motion in arm due to sling. sensation to hand intact. Exam: somnolent, arousable Disposition: discharged
--- NOTE | 2024-04-02 18:09 | SUR.PHASEII ---
ROM AND GOOD CAPILLARY REFILL TO FINGERS OF LEFT HAND.
--- NOTE | 2024-04-02 18:15 | ANE.PACU2 ---
Inpatient post-anesthesia follow up: Airway intact: Yes Vital signs: Temperature 97.8 F Pulse Rate 75 Respiratory Rate 16 Blood Pressure 173/68 Pulse Oximetry 95 Oxygen Delivery Me thod Room Air Oxygen Flow Rate 6 Fraction of Inspir ed Oxygen Hydration adequate: Yes Nausea and vomiting: No Pain level: 1 Mental status: Baseline
== END 2024-04-02 18:15 | disposition home or self-care (01) ==
PROVIDERS: PCP Family Medicine; Visit Provider Student in an Organized Health Care Education/Training Program
PROC: (CPT 24685; principal; 2024-04-02 14:10)
DX: S52.022A Displaced fracture of olecranon process without intraarticular extension of left ulna, initial encounter for closed fracture (principal); W10.8XXA Fall (on) (from) other stairs and steps, initial encounter; K21.9 Gastro-esophageal reflux disease without esophagitis; I10 Essential (primary) hypertension
CPT/HCPCS: 24685; 73070; 76000; C1713; C1734; J0131; J0690; J1100; J1885; J2371; J2405; J2704; J2795; J3010; J3490; J7030

== ENCOUNTER 2024-04-04 06:30 | Outpatient (RCR) | payer MEDICARE, SELFPAY | END 2024-05-04 23:59 | disposition home or self-care (01) | LOC: SOT 06:30 | PROVIDERS: Visit Provider Physician Assistant | DX: S52.002A Unspecified fracture of upper end of left ulna, initial encounter for closed fracture (principal); X58.XXXA Exposure to other specified factors, initial encounter | CPT/HCPCS: 97110; 97140; 97166; 97530 ==

== ENCOUNTER → 2024-04-17 08:28 | Outpatient (BNVA) | payer MEDICARE, SELFPAY | PROVIDERS: PCP Family Medicine; Visit Provider Physician Assistant | DX: Z98.890 Other specified postprocedural states (principal); Z87.81 Personal history of (healed) traumatic fracture; S52.002D Unspecified fracture of upper end of left ulna, subsequent encounter for closed fracture with routine healing; X58.XXXD Exposure to other specified factors, subsequent encounter; Z46.89 Encounter for fitting and adjustment of other specified devices | CPT/HCPCS: 73080 ==

== ENCOUNTER 2024-04-17 12:32 | Outpatient (CLI) | payer MEDICARE, SELFPAY | END 2024-04-17 12:33 | disposition home or self-care (01) | LOC: SPT 12:33 | PROVIDERS: PCP Family Medicine; Visit Provider Physician Assistant | DX: Z46.89 Encounter for fitting and adjustment of other specified devices (principal); Z87.81 Personal history of (healed) traumatic fracture; S52.002D Unspecified fracture of upper end of left ulna, subsequent encounter for closed fracture with routine healing; X58.XXXD Exposure to other specified factors, subsequent encounter | CPT/HCPCS: 99024; L3761 ==

== ENCOUNTER 2024-05-05 06:30 | Outpatient (RCR) | payer MEDICARE, SELFPAY | END 2024-06-01 23:59 | disposition home or self-care (01) | LOC: SOT 06:30 | PROVIDERS: Visit Provider Physician Assistant | DX: S52.002A Unspecified fracture of upper end of left ulna, initial encounter for closed fracture (principal); X58.XXXA Exposure to other specified factors, initial encounter | CPT/HCPCS: 97110; 97140; 97530 ==

== ENCOUNTER → 2024-05-16 14:05 | Outpatient (BNVA) | payer MEDICARE, SELFPAY | PROVIDERS: Visit Provider Student in an Organized Health Care Education/Training Program | DX: Z98.890 Other specified postprocedural states (principal); S52.023D Displaced fracture of olecranon process without intraarticular extension of unspecified ulna, subsequent encounter for closed fracture with routine healing; X58.XXXD Exposure to other specified factors, subsequent encounter | CPT/HCPCS: 73080; 99213 ==

== ENCOUNTER 2024-06-02 06:00 | Outpatient (RCR) | payer MEDICARE, SELFPAY | END 2024-07-02 23:59 | disposition home or self-care (01) | LOC: SOT 06:00 | PROVIDERS: Visit Provider Physician Assistant | DX: S52.002A Unspecified fracture of upper end of left ulna, initial encounter for closed fracture (principal); X58.XXXA Exposure to other specified factors, initial encounter | CPT/HCPCS: 97110; 97140 ==

== ENCOUNTER → 2024-07-18 13:08 | Outpatient (BNVA) | payer MEDICARE, SELFPAY | PROVIDERS: PCP Family Medicine; Visit Provider Physician Assistant | DX: Z98.890 Other specified postprocedural states (principal); Z87.81 Personal history of (healed) traumatic fracture | CPT/HCPCS: 73080; 99213 ==

== ENCOUNTER → 2024-08-23 08:53 | Outpatient (BNVA) | payer MEDICARE, SELFPAY | PROVIDERS: PCP Family Medicine; Visit Provider Nurse Practitioner Family | DX: L71.8 Other rosacea (principal); D22.22 Melanocytic nevi of left ear and external auricular canal; D22.9 Melanocytic nevi, unspecified; L81.4 Other melanin hyperpigmentation; L81.7 Pigmented purpuric dermatosis; Z91.81 History of falling | CPT/HCPCS: 99213 ==

== ENCOUNTER 2024-10-08 10:36 | Outpatient (CLI) | payer MEDICARE, SELFPAY ==
--- NOTE | 2024-10-08 10:40 | MM_ITS ---
WS: [id number] VIEWS: MLO and CC views both breasts. 3D digital tomosynthesis is also included in this exam. Comparison made with prior exam of 05/30/2007, 06/27/2008, 03/17/2010, 04/07/2012, 12/17/2015, 06/24/2020.. Findings: There are scattered areas of fibroglandular density. No sign of suspicious mass, tumor calcification or architectural distortion. MM/MM scr BI tomosynthesis [id number] Impression: BI-RADS: 2 - Benign. FOLLOW-UP: 1 Year Follow-up This mammogram was also analyzed by the Computer Aided Detection System R2 Imag e Hot Cell Technician.
== END 2024-10-08 10:37 | disposition home or self-care (01) ==
LOC: RAD 10:37
PROVIDERS: PCP Family Medicine; Visit Provider Family Medicine
DX: Z12.31 Encounter for screening mammogram for malignant neoplasm of breast (principal); R92.323 Mammographic fibroglandular density, bilateral breasts
CPT/HCPCS: 77063; 77067

== ENCOUNTER → 2024-10-15 15:31 | Outpatient (BNVA) | payer MEDICARE, SELFPAY | PROVIDERS: PCP Family Medicine; Visit Provider Nurse Practitioner Family | DX: L57.8 Other skin changes due to chronic exposure to nonionizing radiation (principal); L81.4 Other melanin hyperpigmentation; X32.XXXA Exposure to sunlight, initial encounter; D48.5 Neoplasm of uncertain behavior of skin | CPT/HCPCS: 11102; 99213 ==